=== PATIENT | male | born 1970 | race Caucasian/White ===

== ENCOUNTER 2019-01-17 12:57 | Emergency (ER) | payer OTHER ==
[~2019-01-17] VITALS: Ht 172.7 cm; Wt 65.8 kg
[~2019-01-17 12:57] MED LIST: CIPRO500 MG PO; CLARITIN10 MG PO; PERCOCET 5/3251 TAB PO; RECTICARE30 GM TP; TUSSIONEX PENNKI5 ML PO
== END 2019-01-17 16:59 | disposition home or self-care (01) ==
LOC: ER 12:57
DX: B34.9 Viral infection, unspecified (principal); R42 Dizziness and giddiness